=== PATIENT | female | born 1985 | race Hispanic/Latino ===

== ENCOUNTER → 2021-06-11 01:18 | Outpatient (CLI) | payer OTHER, SELFPAY ==
[2021-06-11 02:45] LABS: COVID19 - ADMIT (NP swab/PCR) Negative (Negative)
== END ==
PROVIDERS: Referring Provider Internal Medicine; Visit Provider Internal Medicine
DX: Z20.822 Contact with and (suspected) exposure to COVID-19 (principal)
CPT/HCPCS: U0003

== ENCOUNTER 2021-06-11 05:50 | Emergency (ER) | payer OTHER, SELFPAY ==
[2021-06-11 05:57] VITALS: BP 118/79; PULSE 94; RESP 23; TEMP 36.3; O2SAT 100; BMI 19.2
--- NOTE | 2021-06-11 06:00 | DI.RAD.S_ITS ---
PROCEDURE: XR CHEST 2V INDICATIONS: cough and short of breath TECHNIQUE: 2 views of the chest were acquired. COMPARISON: None. FINDINGS: Surgical changes and devices: None. Lungs and pleura: Lungs are clear. Minimal peribronchial airway thickening. No pleural effusions or pneumothorax. Mediastinum: Mediastinal contours are normal. Heart size is normal. Bones and chest wall: No suspicious bony abnormalities. Soft tissues appear unremarkable. IMPRESSION: Minimal peribronchial airway thickening possibly representing reactive airway disease or bronchitis. No focal consolidation. Otherwise, no acute cardiopulmonary abnormalities. No significant discrepancy with the night club manager radiology preliminary report. Dictated by: Elkin Harry M.D. on 06/11/2021 at 7:07 Approved by: Elkin Harry M.D. on 06/11/2021 at 7:08
--- NOTE | 2021-06-11 06:47 | ED_ITS ---
HPI - URI/Sore Throat General Chief Complaint: Upper Respiratory Symptoms Stated Complaint: cough/sore throat/sob x7 days Time Seen by Provider: 06/11/21 06:46 Source: patient Mode of arrival: Ambulatory Limitations: no limitations History of Present Illness HPI Narrative: Patient is a 35-year-old healthy female presenting today with 1 week of upper respiratory like symptoms including sore throat and dry nonproductive cough. She tested earlier today negative for COVID and thought she could come to work. However during her shift she felt like her cough was significantly worse she coughs so hard she vomited. She no longer having fever body aches or chills. Just coughing. The deep breathing exacerbates it. Related Data Previous Rx's Medication Instructions Recorded codeine 10 mg-guaifenesin 100 mg/5 5 ml PO Q6H PRN #50 ml 06/11/21 mL oral liquid (Guaifenesin AC) prednisone 20 mg tablet 40 mg PO DAILY #10 tab 06/11/21 Allergies Allergy/AdvReac Type Severity Reaction Status Date / Time Sulfa (Sulfonamide Allergy Verified 06/11/21 06:23 Antibiotics) tioconazole Allergy Verified 06/11/21 06:23 [From Monistat 1 (tioconazole)] Review of Systems Review of Systems Narrative: GENERAL: Denies chills, fatigue, malaise, fever, sweats, travel HEENT: Denies sinus pain, ear pain, sore throat, difficulty swallowing, neck pain RESPIRATORY: See HPI CARDIOVASCULAR: Denies chest pain, palpitations, orthopnea, edema GASTROINTESTINAL: Denies nausea, vomiting, abdominal pain, diarrhea, constipation, melena. : Denies dysuria, frequency, incontinence, hematuria, urinary retention, flank pain. MUSCULOSKELETAL: Denies weakness, joint pain, or bony pain SKIN: No rash, no erythema, no pruritus NEUROLOGIC: Denies weakness, dizziness, headache, numbness, change in speech, confusion PSYCHIATRIC: No concerning psychosocial issues. 12 point review of systems is negative except for those stated above and HPI Patient History Social History Smoking Status: Never smoker Smoking Status: Never smoker alcohol intake frequency: a few times a week Substance Use Type: does not use Exam Initial Vital Signs Initial Vital Signs: Vital Signs Temperature 97.4 F L 06/11/21 05:57 Pulse Rate 94 H 06/11/21 05:57 Respiratory Rate 23 06/11/21 05:57 Blood Pressure 118/79 06/11/21 05:57 Pulse Oximetry 100 06/11/21 05:57 GENERAL: Alert well-appearing 35-year-old female in no acute distress. HEENT: Head atraumatic,EOMI, pupils reactive, face symmetric, moist mucous membranes PHARYNX: No tonsils no erythema no exudate CARDIOVASCULAR: Regular rate and rhythm without murmurs, rubs or gallops. RESPIRATORY: Breath sounds equal bilaterally, no wheezes rales or rhonchi. Dry nonproductive cough ABDOMEN: Soft, nontender. Normoactive bowel sounds all 4 quadrants. No guarding or rebound. EXTREMITIES: Normal range of motion, no clubbing or edema. Neurovascularly intact NEUROLOGICAL: Alert and oriented x4. SKIN: Warm, dry, no laceration, no petechiae, no rashes or lesions. Course Orders Ordered: ED Orders 06/11/21 06:00 XR chest 2V Stat Vital Signs Vital signs: Vital Signs - 8 hr 06/11/21 05:57 Temperature 97.4 F L Pulse Rate 94 H Respiratory Rate 23 Blood Pressure 118/79 Pulse Oximetry 100 [facility] - URI/Sore Throat Imaging Data Chest x-ray: Radiologist's Impression: Minimal peribronchial testing noted. Days and she can be seen in setting of reactive airway disease such as asthma or bronchitis. [facility] Narrative Medical decision making narrative: Patient has bronchospastic like cough. I offered her albuterol she has opted not to have it. She is requesting prednisone. Does not appear septic she is afebrile. Likely other viral etiology. Discharge Plan Departure Patient Disposition: Home Clinical Impression: Upper respiratory infection Instructions: DI for Acute Bronchitis Activity Restrictions/Additional Instructions: *You have been diagnosed with upper respiratory infection *What to do: Increased fluid intake, rest hopefully you start feeling better soon *Continue to take medications as directed Prednisone 40 mg once daily for 5 days Cough syrup every 6 hours if needed *Follow up with your primary care provider in 2-3 days *Return to ER if you should have increasing shortness of breath, chest pain, or any new, worsening or concerning symptoms CONTROLLED SUBSTANCE DISCHARGE (Narcotoic/benzodiazepine/Flexeril/Phenergan) 1. You have been prescribed narcotic medications, it does have acetaminophen/Tylenol/paracetamol in it, DO NOT TAKE MORE THAN 4,00mg in 24 hours of Tylenol. TRAMADOL DOES NOT CONTAIN TYLENOL 2. Please understand that we cannot provide further refills of narcotics, benzodiazepines or controlled substances through the ED and her pain management will need to be through your provider. 3. While on these medications you cannot drive or operate heavy machinery. 4. You cannot sign legal documents or perform any duties such as this. 5. As long as you're taking opiate pain medications he should also be taking a stool softener such as Colace, Dulcolax, MiraLAX or prune juice, to help avoid constipation. Prescriptions: New prednisone 20 mg tablet 40 mg PO DAILY Qty: 10 0RF codeine-guaifenesin [Guaifenesin AC] 10-100 mg/5 mL liquid 5 ml PO Q6H PRN (Reason: coughing) Qty: 50 0RF
[2021-06-11 07:14] VITALS: BP 118/79; PULSE 85; RESP 18; O2SAT 99
== END 2021-06-11 07:18 | disposition home or self-care (01) ==
PROVIDERS: Emergency Provider Emergency Medicine
DX: J06.9 Acute upper respiratory infection, unspecified (principal); Z20.822 Contact with and (suspected) exposure to COVID-19
CPT/HCPCS: 71046; 99283; U0003